=== PATIENT | male | born 1965 | race Hispanic/Latino ===

== ENCOUNTER 2020-04-22 12:35 | Observation (INO) | payer OTHER ==
[~2020-04-22] VITALS: Ht 175.3 cm; Wt 113.4 kg
--- NOTE | 2020-04-22 12:49 | Emergency Department Note ---
History of Present Illnes History of Present Illness Chief Complaint: Chest Pain History of Present Illness This is a 54 year old male, with history of hypothyroidism, who presents for ev aluation of intermittent chest pain for the past week. Patient was seen by his PCP this morning, who performed an EKG, and sent him over to the ER for further evaluation of his symptoms. Patient describes the pain as an intermittent, tightness/heaviness and burning in his chest. The chest pain has occurred while he is at rest or driving his [place], and it does not radiate. Patient has associated shortness of breath and lightheadedness, with the chest pain. The chest pain lasts approximately 3 minutes, and then resolves. Patient denies any associated palpitations, numbness, tingling or dyspepsia. Patient states that "he takes deep breaths until the pain goes away." Patient denies any previous history of similar pain, prior to one week ago. 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 Patient denies any family history of cardiac disease. Historian: Patient Arrival Mode: Car History limited by: language barrier (mild;) Dress Marker Required: Yes (Sherrie from the front sight attacher translated beautifully. Pt understands most Zambian, but I wanted to be sure that he fully underston eh ==) Onset (how long ago): week(s) (1) Location: mid chest Quality: heaviness/tightness Severity: moderate Onset quality: sudden Duration (how long): hour(s) (3 minutes;) Timing of current episode: intermittent Progression: waxing and waning Chronicity: new Context: Denies recent illness, Denies trauma/injury, Denies new medications Relieving factors: other ("taking deep breaths.") Exacerbating factors: movement (exertion) Associated symptoms: Reports chest pain; Denies cough, Denies fever/chills, Denies headaches, Denies nausea/vomiting, Denies shortness of breath, Denies weakness Treatments prior to arrival: none Risk factors: Obesity, sedentary lifestyle/job, elevated blood pressure reading in the ED Past Medical/Family History Physician Review I have reviewed the patient's past medical and family history. Any updates have been documented here. Past Medical History Recent Fever: No Clinical Suspicion of Infectio: No New/Unexplained Change in Ment: No Past Medical History: Hypothyroidism Past Surgical History: None Social History Smoking Cessation: Never Smoker Alcohol Use: Social Any Illegal Drug Use: No TB Exposure/Symptoms: No Physically hurt or threatened: No Family History Family history of heart diseas: No Other Any Pre-Existing Lines (PICC,: No Is patient up to date on immun: No Review of Systems Review of Systems Constitutional: Denies chills, Denies fever, Denies weakness EENTM: Reports no symptoms Cardiovascular: Reports chest pain; Denies edema, Denies palpitations, Denies syncope Respiratory: Denies cough, Denies dyspnea on exertion Gastrointestinal: Denies abdominal pain, Denies diarrhea, Denies nausea, Denies vomiting Genitourinary: Denies dysuria, Denies frequency, Denies hematuria Musculoskeletal: Denies back pain, Denies muscle pain Integumentary: Denies lesions, Denies rash Neurological: Denies headache, Denies numbness, Denies paresthesia Psychological: Reports no symptoms Endocrine: Reports no symptoms Hematological/Lymphatic: Reports no symptoms Review of other systems: All other systems negative Physical Exam Related Data Allergies: Coded Allergies: No Known Allergies (Unverified , 04/22/20) Vital signs reviewed: Yes Physical Exam CONSTITUTIONAL Constitutional: Present well-developed, Present well-nourished; Absent distressed, Absent ill appearing HENT HENT: Present normocephalic, Present atraumatic, Present oropharynx clear/moist, Present nose normal; Absent rhinorrhea HENT L/R: Present left TM normal, Present right TM normal EYES Eyes: Reports PERRL, Reports conjunctivae normal NECK Neck: Present ROM normal, Present supple; Absent tracheal deviation PULMONARY Pulmonary: Present effort normal, Present breath sounds normal CARDIOVASCULAR Cardiovascular: Present regular rhythm, Present heart sounds normal, Present capillary refill normal, Present normal rate; Absent murmur GASTROINTESTINAL Abdominal: Present soft GENITOURINARY Genitourinary: Present exam deferred SKIN Skin: Present warm, Present dry; Absent rash MUSCULOSKELETAL Musculoskeletal: Present ROM normal; Absent edema, Absent tenderness NEUROLOGICAL Neurological: Present alert, Present oriented x 3; Absent cranial nerve deficit PSYCHOLOGICAL Psychological: Present mood/affect normal, Present judgement normal Results Laboratory Laboratory CBC - normal; Metlyte 8 - normal except for glucose = 129 mg/dl; Heaptic Profile - normal except for TP = 8.2; Cardiac Enzymes #1 - negative (13:07); Cardiac Enzymes #2 - negative (15:47); UA - Negative/Normal; Lab results reviewed: Yes Imaging Imaging results reviewed: Yes Impressions [place] [address] Patient Name: TILA PETER MR #: [id number] : 1965 Age/Sex: 54/M Req #: [id number] Adm Physician: Ordered by: LAITH ALAN MD Report #: [id number] Location: [facility] Room/Bed: Procedure: [id number] [facility]/CXR 2 VIEW - [facility] Exam Date: 04/22/20 Exam Time: 1333 REPORT STATUS: Signed Exam: CXR 2 VIEW - [facility] Date: 04/22/2020 1:35 PM INDICATION: ^chest pain Comparison: None FINDINGS: Lines/Tubes:Overlying EKG leads are noted. Lungs:The lungs are well inflated. No focal consolidation or pulmonary edema. Pleura:No pleural effusion. No pneumothorax. Heart/Mediastinum:Cardiomediastinal silhouette is top normal in size. Pulmonary vascularity is within normal limits. Trachea projects midline. Bones/Soft Tissues: No acute osseous abnormality. Upper abdomen: Unremarkable. IMPRESSION: Negative for acute intrathoracic process. Signed by: Reid Greenberg MD on 04/22/2020 1:36 PM Dictated By: REID GREENBERG MD 35 Transcribed By: MALLORIE on 04/22/201335 COPY TO: LAITH ALAN MD~ Procedures 12 Lead ECG Interpretation ECG Interpretation : ECG: ECG 1 Dress Marker: Interpreted by ED physician Date: Apr 22, 2020 Time: 12:44 Prior ECG tracings: not available for review Rhythm: sinus bradycardia Rate: bradycardia BPM: 54 QRS axis: normal ST segments normal: Yes T waves normal: Yes Q waves: V2 Clinical Impression: abnormal ECG Assessment & Plan Medical Decision Making MDM - Discussed with patient and , that his cardiac enzymes were negative, his EKG shows no specific ischemic changes. However, due to his recurrent symptoms at rest, this raises concern for possible unstable angina. 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 Patient denies any history or symptoms consistent with GERD or dyspepsia. Patient will benefit from admission on telemetry, serial cardiac enzymes and further evaluation of his symptoms. Discussed with patient and , and he is agreeable to admission. 14:58 - case discussed with Dr. Benson, who was agreeable to placing patient in observation on telemetry. He requested that I consult cardiology studio operations engineer in charge, which is Dr. Danish Bacon. 15:25 - case discussed with Dr. Danish Bacon of cardiology, and agreed to consult. He reviewed the EKG and concurred that there are no acute ischemic changes. He requested 16:51 - continue to await bed assignment. Patient is Resting Comfortably Comfortable, and in No Acute Distress. He is stable for transport to [facility] via EMS. Assessment & Plan Final Impression: (1) Chest pain (2) Elevated blood pressure reading (3) Hypothyroidism Depart Disposition: ADMITTED LAITH ALAN MD Apr 22, 2020 12:49
[2020-04-22] MEDS ORDERED: ASPIRIN 325 MG TAB PO ONE (13:00)
--- NOTE | 2020-04-22 13:40 | Diagnostic Imaging Report ---
Exam: CXR 2 VIEW - [facility] Date: 04/22/2020 1:35 PM INDICATION: ^chest pain Comparison: None FINDINGS: Lines/Tubes:Overlying EKG leads are noted. Lungs:The lungs are well inflated. No focal consolidation or pulmonary edema. Pleura:No pleural effusion. No pneumothorax. Heart/Mediastinum:Cardiomediastinal silhouette is top normal in size. Pulmonary vascularity is within normal limits. Trachea projects midline. Bones/Soft Tissues: No acute osseous abnormality. Upper abdomen: Unremarkable. IMPRESSION: Negative for acute intrathoracic process. Signed by: Beto Greenberg MD on 04/22/2020 1:36 PM
--- NOTE | 2020-04-22 14:57 | NUR ---
called Dr. Benson for Dr. Pérez to speak with him regarding this patient
[2020-04-22] MEDS ORDERED: MORPHINE SULFATE INJ 4 MG/ML INJ 1ML IV PRN ×2 (15:30→23:30)
[2020-04-22] MEDS ORDERED: SODIUM CHLORIDE FLUSH 10 ML SYR INJ PRN (15:30)
[2020-04-22] MEDS ORDERED: CLOPIDOGREL BISULFATE 75 MG TAB PO ONE (15:30)
[2020-04-22] MEDS ORDERED: ONDANSETRON HCL INJ 2MG/ML 2ML 2 MG/ML VIAL IV PRN ×2 (15:30→23:30)
[2020-04-22] MEDS ORDERED: ASPIRIN 81 MG CHEW TAB PO ONE (15:30)
[2020-04-22] MEDS ORDERED: CLOPIDOGREL BISULFATE 75 MG TAB ONE (15:36)
--- NOTE | 2020-04-22 15:50 | NUR ---
INFORMED PATIENT THE BED HAS BEEN REQUESTED FOR [facility]. INFORMED PATIENT AND HIS SPOUSE THAT I WOULD INFORM THEM WHEN BED IS ASSIGNED. UNDERSTANDING WAS VERBALIZED
[2020-04-22] MEDS: FAMOTIDINE 20 MG TAB PO SCH (15:52)
--- OUTSIDE RECORDS SUMMARY | 2020-04-22 16:01 | XMS REPORT | Continuity of Care Document ---
Author Author [facility] t Organization [facility] Address [address] [place] [address] [place] [id number] Phone Unavailable Care Team Providers Care [employer] Safety Program Coordinator Name Role Phone Basilio ALAN Unavailable Problems This patient has no known problems. Allergies, Adverse Reactions, Alerts This patient has no known allergies or adverse reactions. Medications This patient has no known medications. Procedures This patient has no known procedures. Results Test Description Test Time Test Comments Results Result Comments Source CXR 2 VIEW - [facility] 2020-04-22 13:35:00 [place] [address] Patient Name: TILA PETER MR #: [id number] : 1965 Age/Sex: 54/M Req #: [id number] Adm Physician: Ordered by: LAITH ALAN MD Report #: [id number] Location: [facility] Room/Bed: Procedure: [id number] HOPD/CXR 2 VIEW - [facility] Exam Date: 04/22/20 Exam Time: 1334 REPORT STATUS: Signed Exam: CXR 2 VIEW - [facility] Date: 04/22/2020 1:35 PM INDICATION: chest pain Comparison: None FINDINGS: Lines/Tubes:Overlying EKG leads are noted. Lungs:The lungs are well inflated. No focal consolidation or pulmonary edema. Pleura:No pleural effusion. No pneumothorax. Heart/Mediastinum:Cardiomediastinal silhouette is top normal in size. Pulmonary vascularity is within normal limits. Trachea projects midline. Bones/Soft Tissues: No acute osseous abnormality. Upper abdomen: Unremarkable. IMPRESSION: Negative for acute intrathoracic process. Signed by: Reid Greenberg MD on 04/22/2020 1:36 PM Dictated By: REID GREENBERG MD 1336 Transcribed By: MALLORIE on 04/22/206 COPY TO: LAITH ALAN MD
--- NOTE | 2020-04-22 16:58 | NUR ---
[facility] CALLED FOR TRANSPORT TO [facility] [address]. ETA OF EMS APPROX. 30MIN
--- NOTE | 2020-04-22 17:06 | NUR ---
bed assignment received. Pt. going to bed 294 @ [facility]. Updated patient and his spouse. They would like to know visitation guidelines. Informed them I would call report and get this info for them and let them know
--- NOTE | 2020-04-22 17:08 | NUR ---
REPORT ATTEMPTED AT THIS TIME. WAS ASKED TO CALL BACK IN 10-15 MIN. TOLD THEM TO HAVE NURSE CALL [facility] WHEN READY TO RECEIVE REPORT
--- NOTE | 2020-04-22 17:37 | NUR ---
CALLED TO GIVE REPORT, SPOKE WITH NURSE JESSICA. REPORT GIVEN AT THIS TIME. DENIES ANY QUESTIONS AT THIS TIME. PATIENT LEAVING AAOX4; VSS; RR EVEN & UNLABORED
[2020-04-22 18:39] VITALS: BP 133/85
[2020-04-22 18:55] VITALS: BP 133/85
[2020-04-22 18:56] VITALS: BP 133/85
--- NOTE | 2020-04-22 19:16 | NUR ---
PATIENT ARRIVED AT 1749 VIA AMBULANCE FROM [facility]. PATIENT ALERT AND IN STABLE CONDITION WITH NO S/S SYMPTOMS OF RESPIRATORY DISTRESS. IV SALINE LOCK 20 G RT FOREARM. CHEST PAIN 09/17. TELE APPLIED. CALL LIGHT WITHIN REACH. PATIENT INSTRUCTED TO CALL NURSE NEEDED.
--- NOTE | 2020-04-22 19:40 | NUR ---
PATIENT IS IN STABLE CONDITION WITH NO S/S OF RESPIRATORY DISTRESS. PATIENT C/O CHEST PAIN 10/18. TELEMETRY APPLIED. CALL LIGHT IS WITHIN REACH, PATIENT INSTRUCTED TO CALL FOR ASSISTANCE NEEDED. BEDSIDE SHIFT REPORT GIVEN TO ONCOMING NURSE.
--- NOTE | 2020-04-22 19:57 | NUR ---
Received change of shift report from AM nurse. Walking rounds completed
[2020-04-22 20:00] VITALS: BP 133/85
[2020-04-22 20:34] LABS: ANION GAP 13.6 mmol/L (8-16); BLOOD UREA NITROGEN 15 mg/dL (7-26); BUN/CREATININE RATIO 16 (6-25); CALCIUM 8.7 mg/dL (8.4-10.2); CARBON DIOXIDE 25 mmol/L (22-29); CHLORIDE 102 mmol/L (98-107); CREATININE, SERUM 0.95 mg/dL (0.72-1.25); EST GLOMERULAR FILTRATION RATE > 60 ML/MIN (60-); GLUCOSE 114 mg/dL (74-118); POTASSIUM 3.6 mmol/L (3.5-5.1); SODIUM 137 mmol/L (136-145)
[2020-04-22 20:46] LABS: CREATINE KINASE 68 IU/L (30-200)
[2020-04-22] MEDS ORDERED: DEXTROSE 50% SYRINGE 50 ML IV PRN (23:30)
[2020-04-22] MEDS ORDERED: BENZONATATE 100 MG CAP PO PRN (23:30)
[2020-04-22] MEDS ORDERED: HYDRALAZINE HCL 20 MG/ML VIAL IV PRN (23:30)
[2020-04-22] MEDS ORDERED: TRAMADOL HCL 50 MG TAB PO PRN (23:30)
[2020-04-22] MEDS ORDERED: DOCUSATE SODIUM 100 MG CAP PO PRN (23:30)
[2020-04-22] MEDS ORDERED: ACETAMINOPHEN 325 MG TAB PO PRN (23:30)
[2020-04-22] MEDS ORDERED: MELATONIN 5 MG TABLET PO PRN (23:30)
[2020-04-23] VITALS (7 sets, daily range): BP systolic 100–115; BP diastolic 58–72
[2020-04-23] MEDS: FAMOTIDINE 20 MG TAB PO SCH ×2 (03:30→15:30)
--- NOTE | 2020-04-23 05:38 | NUR ---
Consent signed. Patient in bed with no complaints at this time.
[2020-04-23 06:43] LABS: BASOPHILS % 0.6 % (0.0-1.0); EOSINOPHILS # (AUTO) 0.2 (0.0-0.4); EOSINOPHILS % 2.6 % (0.0-6.0); HEMATOCRIT 42.7 % (38.2-49.6); HEMOGLOBIN 14.7 g/dL (14.0-18.0); LYMPHOCYTES # (AUTO) 2.2 (1.0-3.2); LYMPHOCYTES % 33.7 % (18.0-39.1); MEAN CORPUSCULAR HEMOGLOBIN 31.7 pg (28-32); MEAN CORPUSCULAR HGB CONC 34.4 g/dL (31-35); MONOCYTES # (AUTO) 0.8 (0.2-0.8); MONOCYTES % 11.7 % (4.4-11.3); NEUTROPHILS # (AUTO) 3.4 (2.1-6.9); NEUTROPHILS % 50.9 % (38.7-80.0); PLATELET COUNT 256 x10e3/uL (140-360); RED BLOOD COUNT 4.64 x10e6/uL (4.3-5.7); RED CELL DISTRIBUTION WIDTH 12.4 % (11.7-14.4)
[2020-04-23 07:07] LABS: ALANINE AMINOTRANSFERASE 27 IU/L (0-55); ALBUMIN 3.8 g/dL (3.5-5.0); ALBUMIN/GLOBULIN RATIO 1.2 (0.8-2.0); ALKALINE PHOSPHATASE 59 IU/L (40-150); ANION GAP 12.1 mmol/L (8-16); BLOOD UREA NITROGEN 15 mg/dL (7-26); BUN/CREATININE RATIO 15 (6-25); CALCIUM 8.3 mg/dL (8.4-10.2); CARBON DIOXIDE 27 mmol/L (22-29); CHLORIDE 102 mmol/L (98-107); CREATININE, SERUM 1.01 mg/dL (0.72-1.25); EST GLOMERULAR FILTRATION RATE > 60 ML/MIN (60-); GLUCOSE 112 mg/dL (74-118); POTASSIUM 4.1 mmol/L (3.5-5.1); SODIUM 137 mmol/L (136-145)
[2020-04-23 07:25] LABS: CHOL/HDL RATIO 5.5 (3.9-4.7)
[2020-04-23] MEDS: PANTOPRAZOLE SOD 40 MG TABEC PO SCH (07:30)
[2020-04-23 07:32] LABS: THYROID STIMULATING HORMONE 6.912 uIU/mL (0.350-4.940)
[2020-04-23 07:49] LABS: CREATINE KINASE 61 IU/L (30-200)
[2020-04-23] MEDS: ASPIRIN 81 MG ENTERIC COATED PO SCH (09:00)
[2020-04-23] MEDS ORDERED: IOPAMIDOL 370 MG/ML 200 ML INFUS..BTL INJ ONE ×3 (10:15→16:33)
[2020-04-23] MEDS ORDERED: SODIUM CHLORIDE 0.9% 50ML 50 ML ONE ×2 (10:15→13:36)
--- NOTE | 2020-04-23 10:41 | NUR ---
PATIENT CURRENTLY OFF UNIT FOR SCHEDULED STRESS TEST.
[2020-04-23] MEDS ORDERED: SODIUM CHLORIDE 0.9% 1000ML 1,000 ML IV SCH (11:00)
[2020-04-23] MEDS ORDERED: CLOPIDOGREL BISULFATE 75 MG TAB PO ONE (11:15)
--- NOTE | 2020-04-23 11:16 | Diagnostic Imaging Report ---
CT of the chest, with contrast, 04/23/2020. History: Chest pain. Comparison: Chest x-ray 04/22/2020. Technique: Multidetector CT scanning of the chest was performed from the level of the apices to the upper abdomen after intravenous administration of contrast. Coronal and sagittal multiplanar reformations were obtained. RADIATION DOSE: Total DLP: 569 mGy*cm Dose modulation, iterative reconstruction, and/or weight based adjustment of the mA/kV was utilized to reduce the radiation dose to as low as reasonably achievable. Discussion: Chest: The atria, ventricles, aorta, and main pulmonary artery are normal in size. The thyroid is unremarkable. There is no evidence of axillary or mediastinal adenopathy. Minimal linear scarring is present in the right middle lobe and both lung bases. There is no evidence of consolidation, mass, or pleural effusion. Limited evaluation of the upper abdomen shows a 1 cm nodule arising from the lateral limb of the left adrenal gland. The right adrenal is unremarkable. Bones and soft tissues: No acute abnormality. IMPRESSION: 1. No acute pulmonary abnormality. 2. Left adrenal nodule may be further evaluated with noncontrast abdominal CT. Signed by: Jaret Zhao on 04/23/2020 11:13 AM
--- NOTE | 2020-04-23 11:23 | Consultation ---
DATE OF CONSULTATION: 04/23/2020 Cardiac Consultation REASON FOR CONSULTATION: Chest pain. HISTORY OF PRESENT ILLNESS: This is a 54-year-old gentleman, who is known with no major illness. 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 He is active. For two or three days ago, have severe retrosternal chest pressure, chest tightness. He did not take it and he was not worried about it. However, yesterday had another episode, which was very severe. The patient symptoms are very typical for unstable coronary syndrome. However, the patient ruled out for myocardial infarction with serial cardiac enzymes and by questioning him, he said with activity, does not have chest pain. There is no pleuritic component. The patient is relatively active. He drive only in the city and he does not sit for long drive. There is no pleuritic chest pain. CAT scan just ordered and it is in process. REVIEW OF SYSTEMS: GENERAL: No fever, no chills. HEENT: No vision problem. No hearing problem. PULMONARY: No pleuritic chest pain. No cough. No hemoptysis. CARDIAC: As per acute illness. GI: No hematemesis, no melena, no GERD. : No hematuria, no dysuria. MUSCULOSKELETAL: No aches, no pain. ENDOCRINE: No diabetes mellitus. HEMATOLOGY: No easy bruising or bleeding. SOCIAL HISTORY: He is . He is nonsmoker and non-alcohol drinker. 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 PAST MEDICAL HISTORY: None. MEDICATION: None. ALLERGIES: NONE. FAMILY HISTORY: No family history of premature coronary artery disease. PHYSICAL EXAMINATION: VITAL SIGNS: Height of 5 feet 9 inches, weight of 250 pounds, blood pressure 100/50, heart rate of 60, respiratory rate of 18, afebrile. HEENT: Pupils are equal, reactive. NECK: No elevation of jugular venous pulsation. No bruit. CHEST: Clear to auscultation and percussion. HEART: PMI 5th left intercostal space. Normal first and second heart sounds. ABDOMEN: Soft with good bowel sounds. EXTREMITIES: No cyanosis, no clubbing, no edema. NEUROLOGIC: Nonfocal. LABORATORY DATA: Serial cardiac enzymes are normal. Lipid profile showed triglycerides of 197, cholesterol of 193, HDL of 35, LDL of 119, TSH of 6.9. Sodium of 137, potassium 4.1, BUN of 15, and creatinine of 1. White blood cell count of 6.6, hemoglobin of 14.7, hematocrit 42%, and platelet count of 256,000. EKG showed normal sinus rhythm, nonspecific EKG changes. Sinus bradycardia on the 2nd EKG, nonspecific ST changes. Serial cardiac enzymes are normal. Chest x-ray, no acute changes. CT scan ordered and done and pending the results. IMPRESSION AND PLAN: Symptoms are very worrisome for angina in this gentleman. Of definitely differential diagnosis PE. 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 Options of workup are discussed. Pending the CT scan, the patient opted for stress test. This will be done. If it is positive, then cardiac catheterization to follow up. The questions are answered. MD ROBERTO Crenshaw/ZACK /[id number]
--- NOTE | 2020-04-23 12:08 | EXERCISE STRESS TEST ---
DATE OF STUDY: 04/23/2020 10:56:00 Stress Test - Treadmill ONLY TITLE OF THE TEST: Cardiac stress test. TECHNICAL DETAILS: The protocol is a Randal with target heart rate at 139 per minute. RESULTS: 1. The patient exercised only for 4 minutes and 58 seconds. Test stopped because of severe chest pain. 2. Heart rate increased from 65 to 101 per minute. 3. Blood pressure increased from 130/82 to 170/75. 4. No EKG changes. IMPRESSION: Positive cardiac stress test. Test stopped because of patient having severe chest pain, i.e., positive submaximal stress test. MD ROBERTO Crenshaw/MODL /[id number]
[2020-04-23 15:09] LABS: CREATINE KINASE MB 0.6 ng/mL (0-5.0)
--- NOTE | 2020-04-23 16:20 | NUR ---
PATIENT TRANSFERRED TO [facility] FOR SCHEDULED HEART CATH.
[2020-04-23] MEDS ORDERED: HEPARIN SOD/SOD CHLORIDE 2,000 ML ONE (16:33)
[2020-04-23] MEDS ORDERED: FENTANYL CITRATE/PF 100MCG/2 ML INJ ONE (16:33)
[2020-04-23] MEDS ORDERED: MIDAZOLAM HCL 2 MG/2 ML VIAL ONE (16:33)
[2020-04-23] MEDS ORDERED: LIDOCAINE HCL 2% LOCAL 20 ML VIAL ONE (16:33)
[2020-04-23] MEDS ORDERED: SODIUM CHLORIDE 0.9% 1000ML 1,000 ML ONE (16:34)
[2020-04-23] MEDS ORDERED: ENOXAPARIN SOD INJ 40 MG/0.4 ML SYR SC SCH (17:00)
[2020-04-23] MEDS ORDERED: MORPHINE SULFATE INJ 4 MG/ML INJ 1ML IV PRN (17:15)
[2020-04-23] MEDS ORDERED: ONDANSETRON HCL INJ 2MG/ML 2ML 2 MG/ML VIAL IV PRN (17:15)
[2020-04-23] MEDS ORDERED: MORPHINE SULFATE 2 MG/ML SYR 1ML IV PRN (17:15)
[2020-04-23] MEDS: SODIUM CHLORIDE 0.9% 1000ML 1,000 ML IV SCH (17:15)
--- NOTE | 2020-04-23 17:57 | NUR ---
AAOX3. ACYANOTIC. PATIENT RESTING IN SUPINE POSITION IN BED. RIGHT GROIN SOFT AND NON TENDER. TEGADERM DRESSING NOTED TO RIGHT GROIN. NO ACTIVE BLEEDING AT SITE. INSTRUCTED PATIENT TO REMAIN IN SUPINE POSTION WITH BILATERAL LOWER EXTREMITIES EXTENDED UNTIL 2230. PATIENT VERBALIZED UNDERSTANDING. NS INFUSING AT 150 ML/HR VIA RIGHT AC IV. CALL LIGHT IN REACH. SIDE RAILS UP X2. BED LOW AND LOCKED.
--- NOTE | 2020-04-23 19:20 | NUR ---
RECEIVED THE PATIENT IN REPORT.LYEING SUPINE POSITION IN THE BED.NO PAIN VOICED.R GROIN DRESSING IS DRY.NO BLEEDING NOTED.ON BED REST.IV FLUID RUNNING.BED LOCKED AND IN LOWEST POSITION.PHONE AND CALL LIGHT WITHIN REACH.INSTRUCTED TO CALL FOR ASSISTANCE NEEDED.DENIED ANY NEEDS.
--- NOTE | 2020-04-23 21:26 | History and Physical ---
CHIEF COMPLAINT: Chest pain. HISTORY OF PRESENT ILLNESS: A 54-year-old male, morbidly obese, reports no past medical history, comes into the ED with complaints of chest pain ongoing for the last 2-3 weeks. The patient reports chest pain is substernal with no radiation. No associated nausea or vomiting. No cough, congestion, fever, or any recent travel. He has never experienced chest pain like this before. He is currently chest pain free during my evaluation. The patient is seen and evaluated at bedside on the medical floor. He is currently doing well with no other issues at this time. REVIEW OF SYSTEMS: Pertinent positive chest pain. The rest of 14-point review of systems are reviewed with the patient and are negative. ALLERGIES: NO KNOWN DRUG ALLERGIES. HOME MEDICATIONS: None. PAST MEDICAL HISTORY: Reports none. PAST SURGICAL HISTORY: Reports none. PAST SOCIAL HISTORY: Denies any drugs or any alcohol. FAMILY HISTORY: Reports none. PHYSICAL EXAMINATION: VITAL SIGNS: Temperature is 98.6, pulse is 49, blood pressure is 106/58, respiratory rate is 21, saturating 100% on room air. GENERAL: In acute distress, alert and oriented x3. Cooperative on examination. HEENT: Normocephalic, atraumatic. Eyes; pupils are equal, round, and reactive to light bilaterally. Extraocular movements are intact. Throat; no evidence of erythema or exudates in the posterior pharynx. Poor dentition. NECK: Supple. Good range of motion. PULMONARY: Clear to auscultation bilaterally. No wheezing, rales, or rhonchi. No crackles appreciated. CARDIOVASCULAR: Positive S1, S2. No murmurs, rubs, or gallops. ABDOMEN: Soft, nondistended, nontender to palpation. Bowel sounds present. MUSCULOSKELETAL: Strength 5/5 throughout. No evidence of any muscle deficits on examination. SKIN: Intact, warm to touch. Good cap refill. LABORATORY DATA: CBC: White count 6.5, hemoglobin 14, hematocrit 43, platelets of 256. Chemistry: Sodium 137, potassium 4, chloride 102, bicarb 27, anion gap of 12, BUN 15, creatinine 1.01, glucose is 112, hemoglobin A1c is 6, calcium is 8.3. LFTs within normal range. Troponin's were all negative. Albumin is 3.8. LDL was 119. TSH is 6.9. Serology; coronavirus is pending. IMAGING STUDIES: Chest x-ray negative for any acute intrathoracic process. CT of the chest, no acute pulmonary abnormality. Left adrenal nodule may be further evaluated on noncontrast abdominal CT. This was discussed with the patient. He will follow up as an outpatient with his PCP. IMPRESSION: 1. Chest pain, rule out acute coronary syndrome, seems to be typical chest pain. 2. Morbid obesity. 3. Hyperlipidemia. PLAN: At this time, the patient had a cardiac stress test performed this morning, and during the stress test, he was complaining of chest pain in which he was aborted. He is scheduled for left heart catheterization later today by Cardiology. We will continue with cardioprotective medications with aspirin as well as statin. Start on oral Lipitor for his elevated LDL level. His TSH is 6.98, it may need to be repeated at a later date to see if he truly has hypothyroidism. Put on Lovenox for DVT prophylaxis. He has been loaded up with Plavix as well as other anti-platelet therapy. We will follow Cardiology recommendations. Get a 2D echo as well. Plan of care discussed with the patient at bedside and nursing staff verbalized understanding. MD LUPE Hua/ZACK /[id number]
--- NOTE | 2020-04-23 23:52 | Operative Report ---
DATE OF PROCEDURE: 04/23/2020 SURGEON: Thanh Bacon MD TITLE OF PROCEDURE: Cardiac catheterization. 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 For the past 2- 3 days, he had been having severe retrosternal chest pressure and chest tightness and he continued to be concerned about this episodes. Given that the patient had typical symptoms. He was referred for treadmill stress testing, which was submaximum and strongly abnormal early stage II with development of severe chest pain at a submaximal workload effort. As such, the patient was referred for cardiac catheterization for further evaluation of his coronary status. CT chest was negative. PREPROCEDURE DIAGNOSES: Anginal equivalent, unstable angina, abnormal cardiovascular stress test. POSTPROCEDURE DIAGNOSES: Nonobstructive coronary artery atherosclerosis as above. PROCEDURES PERFORMED: Right common femoral artery access with a 4-[place] sheath, selective coronary angiography, left heart catheterization. ANESTHESIA USED: Moderate sedation. DESCRIPTION OF PROCEDURE: After discussion of the risks, benefits, and alternatives for his cardiac catheterization, the patient was agreeable and signed informed consent. The patient was then brought to the cardiac catheterization suite and prepped and draped in sterile fashion. 1% lidocaine was used to numb up the area of the right groin. Subsequently, we used a micropuncture set to gain access in the right common femoral artery using fluoroscopic guidance. Subsequently, we upsized this to a 4-[place] Citizen sheath within the right common femoral artery. We then advanced a JL4 Judkin's catheter and engaged the left main coronary artery and obtained several standard orthogonal views of the left coronary system. We then advanced a 4-[place] Citizen 3DRC diagnostic catheter over the J-wire and engaged the RCA without difficulty and obtained several various orthogonal views of the right coronary system. We then advanced a 4-[place] Citizen JL5 catheter, given that he had a little bit of an enlarged aortic root and more selectively engaged the left main coronary artery, which we obtained another angiographic view. Subsequently, we advanced a 9-Oxygbg-fznbpy pigtail catheter over the J-wire into the LV and we measured LV pressures, LVEDP, and aortic valve gradient pullback. We then reviewed the images in conclude at the case. FINDINGS: Left main is normal, ramus normal, LAD normal, circumflex codominant normal, RCA codominant normal, aortic pressure 122/72 mmHg. LV pressure 124 systolic mmHG with LVEDP 12 mmHG. DISPOSITION: The patient was returned to the holding area to monitor for complications. ESTIMATED BLOOD LOSS: 5 mL. CONDITION: Stable. COMPLICATIONS: None. SPECIMENS: None. PLAN: Medical management MD Bel LindJ/MODL /[id number] MTDD
[2020-04-24 00:15] VITALS: BP 95/59
[2020-04-24] MEDS: SODIUM CHLORIDE 0.9% 1000ML 1,000 ML IV SCH (00:37)
--- NOTE | 2020-04-24 01:16 | NUR ---
AMBULATED .VOIDED.STABLE CONDITION.NO PAIN VOICED.DRESSING SITE IS DRY.KEEP MONITOR THE PATIENT.
[2020-04-24] MEDS: FAMOTIDINE 20 MG TAB PO SCH (03:53)
[2020-04-24 04:40] VITALS: BP 106/68
[2020-04-24 06:26] LABS: BASOPHILS % 0.4 % (0.0-1.0); EOSINOPHILS # (AUTO) 0.2 (0.0-0.4); EOSINOPHILS % 2.5 % (0.0-6.0); HEMOGLOBIN 14.5 g/dL (14.0-18.0); LYMPHOCYTES # (AUTO) 2.2 (1.0-3.2); LYMPHOCYTES % 33.4 % (18.0-39.1); MEAN CORPUSCULAR HEMOGLOBIN 32.6 pg (28-32); MEAN CORPUSCULAR HGB CONC 34.5 g/dL (31-35); MEAN CORPUSCULAR VOLUME 94.4 fL (81-99); MONOCYTES # (AUTO) 0.7 (0.2-0.8); MONOCYTES % 10.5 % (4.4-11.3); NEUTROPHILS # (AUTO) 3.5 (2.1-6.9); NEUTROPHILS % 52.9 % (38.7-80.0); PLATELET COUNT 241 x10e3/uL (140-360); RED BLOOD COUNT 4.45 x10e6/uL (4.3-5.7); RED CELL DISTRIBUTION WIDTH 12.3 % (11.7-14.4)
[2020-04-24 06:57] LABS: ALANINE AMINOTRANSFERASE 26 IU/L (0-55); ALBUMIN 3.7 g/dL (3.5-5.0); ALBUMIN/GLOBULIN RATIO 1.2 (0.8-2.0); ALKALINE PHOSPHATASE 53 IU/L (40-150); ANION GAP 14.3 mmol/L (8-16); BLOOD UREA NITROGEN 14 mg/dL (7-26); BUN/CREATININE RATIO 15 (6-25); CALCIUM 8.3 mg/dL (8.4-10.2); CARBON DIOXIDE 26 mmol/L (22-29); CHLORIDE 103 mmol/L (98-107); CREATININE, SERUM 0.94 mg/dL (0.72-1.25); EST GLOMERULAR FILTRATION RATE > 60 ML/MIN (60-); GLUCOSE 105 mg/dL (74-118); POTASSIUM 4.3 mmol/L (3.5-5.1); SODIUM 139 mmol/L (136-145)
--- NOTE | 2020-04-24 07:15 | NUR ---
Bed side shift report given to oncoming RN.stable condition.
[2020-04-24 07:26] VITALS: BP 101/59
[2020-04-24 08:55] VITALS: BP 101/59
[2020-04-24] MEDS: PANTOPRAZOLE SOD 40 MG TABEC PO SCH (08:57)
[2020-04-24] MEDS: ASPIRIN 81 MG ENTERIC COATED PO SCH (08:57)
--- NOTE | 2020-04-24 10:02 | NUR ---
Cardiology has made rounds and cleared patient for dc home with no prescriptions
[2020-04-24 11:20] VITALS: BP 104/67
--- NOTE | 2020-04-24 13:15 | NUR ---
Discharge instructions and prescriptions were given to the patient, he verbalized understanding. IV was removed from the right ac
--- NOTE | 2020-04-25 12:25 | Discharge Summary ---
FINAL DISCHARGE DIAGNOSES: 1. Chest pain, atypical in nature. 2. Morbid obesity. 3. Hyperlipidemia. CONSULTANTS: Cardiology. PHYSICAL EXAMINATION: VITAL SIGNS: Temperature is 97.9, pulse 65, respiratory rate is 18, blood pressure 104/67, and pulse ox 98% on room air. LABORATORY DATA: Show white count was 6.6, hemoglobin 14.5, hematocrit is 42, and platelets of 241. Chemistry; sodium 139, potassium 4.3, chloride 103, bicarb 26, anion gap of 14, BUN is 14, creatinine is 0.94, and glucose is 105. Hemoglobin A1c is 6. Calcium is 8.3. LFTs within normal range. Troponins were negative. Albumin was 3.7. TSH was 6.9. LDL was 119. Coronavirus not detected. IMAGING STUDIES: Chest x-ray was negative. CT of the chest, no acute pulmonary abnormality. Left adrenal nodule may be further evaluated noncontrast abdominal CT. This was discussed with the patient about the CT findings and needs close followup as an outpatient in terms of the adrenal nodule for change of size. CT chest with contrast was found to be normal. HOSPITAL COURSE: A 54-year-old male, comes into the ED with complaints of chest pain prompting Cardiology consultation. The patient was admitted under observation. Cardiology was consulted. Cardiac enzymes were found to be negative. Cardiac stress testing was positive, in which stress test was stopped during the test, as he was complaining of chest pain. The patient underwent left heart catheterization on 04/23/2020, found to have a normal heart catheterization with no intervention needed. The patient did well while here in the hospital stay. He was cleared for discharge by Cardiology. On the day of discharge, the patient had no complaints of any chest pain. In fact, he had no more chest pain on admission to the hospital. All his symptoms have all resolved. CT chest and imaging was found to be normal. The patient has been cleared for discharge by Cardiology. On the day of discharge, vital signs were stable, labs reviewed and stable. The patient is seen and evaluated, and examined thoroughly on the day of discharge, no other complaints. The patient verbalized understanding and agrees to plan of care to follow up as an outpatient with the primary care physician in one week and Cardiology in 2 weeks' time. MEDICATIONS: See medication reconciliation form. DISPOSITION: Home. CONDITION: Stable. DIET: Heart healthy. In the event of any worsening symptoms, the patient was advised to come back to the ED for further evaluation. Discharge summary took greater than 35 minutes. MD LUPE Hua/ZACK /[id number]
== END 2020-04-24 14:00 | disposition home or self-care (01) ==
LOC: FSED 13:02 → ERHOLD 15:27 → MED/SURG3 17:49
PROVIDERS: ADMIT Internal Medicine; ATTEND Internal Medicine
DX: R07.89 Other chest pain (principal); E03.9 Hypothyroidism, unspecified; R03.0 Elevated blood-pressure reading, without diagnosis of hypertension; E66.01 Morbid (severe) obesity due to excess calories; E78.5 Hyperlipidemia, unspecified; R94.39 Abnormal result of other cardiovascular function study; I25.10 Atherosclerotic heart disease of native coronary artery without angina pectoris; Z68.36 Body mass index [BMI] 36.0-36.9, adult; Z11.59 Encounter for screening for other viral diseases
CPT/HCPCS: 36415 ×3; 71046; 71260; 80048; 80053 ×2; 80061; 80076; 81003; 82550 ×2; 82553 ×2; 83036; 84443; 84484 ×2; 85025 ×3; 93005; 93017; 93306; 93458; 96361; 99284; C1769; C1887; G0378 ×3; J2001; J2250; J3010; J7030; Q9967; S0164; U0002; 96360; 99152